=== PATIENT | female | born 1995 | race Caucasian/White ===

== ENCOUNTER 2022-11-30 20:22 | Emergency (ER) | payer BC ==
[2022-11-30] MEDS ORDERED: Lidocaine 1% 5 ML VIAL INJECT ONE (21:24)
[2022-11-30] MEDS ORDERED: Diphtheria,Pertussis(Acell),Tetanus Vaccine 0.5 ML Syringe IM ONE (21:25)
== END 2022-11-30 22:16 | disposition home or self-care (01) ==
LOC: MW.ED 20:22
DX: S61.012A Laceration without foreign body of left thumb without damage to nail, initial encounter (principal); Z23 Encounter for immunization; W26.8XXA Contact with other sharp object(s), not elsewhere classified, initial encounter
CPT/HCPCS: 12001; 90471; 90715; 93010; 99282-25; 99283; J3490